=== PATIENT | female | born 1960 | race Caucasian/White ===

== ENCOUNTER 2021-09-04 00:23 | Day surgery (SDC) | payer BC, SELFPAY ==
[2021-08-29 15:07] VITALS: BMI 32.2
--- NOTE | 2021-09-04 10:01 | ECG_ITS ---
Measurements Intervals [place] Rate: 74 P: 62 [place]: 167 QRS: 4 QRSD: 85 T: 45 QT: 404 QTc: 449 Interpretive Statements SINUS RHYTHM LOW QRS VOLTAGE IN PRECORDIAL LEADS EARLY PRECORDIAL R/S TRANSITION BORDERLINE ECG Electronically Signed On 09-04-2021 10:52:05 CDT by Thomas Armendariz D.O.
[2021-09-04 10:33] VITALS: BMI 32.4
[2021-09-04] MEDS: LACTATED RINGERS 1,000 ML 30 ML IV CONT (10:36)
[2021-09-04 10:37] VITALS: BP 125/77; PULSE 78; RESP 20; TEMP 37.2; O2SAT 98
--- NOTE | 2021-09-04 11:14 | WPDANESEPPF ---
Anes - Initial Pre Proc Eval Procedure: Operation Date: 09/04/21 12:00 Proposed Procedures p Excisional Biopsy Of Left Posterior Shoulder Mass - Niesha Bower MD Date/Time: 09/04/21 11:14 Surgeon: Niesha Bower MD Pre Op Diagnosis: Left Posterior Shoulder Mass Patient Data Age: 61 Gender: F Height: 1.6 m Weight: 83 kg Last Vital Signs Temp 37.2 C 09/04/21 10:37 Pulse 78 09/04/21 10:37 Resp 20 09/04/21 10:37 BP 125/77 09/04/21 10:37 Pulse Ox 98 09/04/21 10:37 Allergies Allergy/AdvReac Type Severity Reaction Status Date / Time No Known Allergies Allergy Verified 08/29/21 15:05 Home Medications Medication Instructions Recorded Confirmed Type acetaminophen 650 mg 650 mg PO Q12H PRN 07/22/21 09/04/21 History tablet,extended release amlodipine 10 mg tablet 10 mg PO HS 07/22/21 09/04/21 History atorvastatin 40 mg tablet 40 mg PO HS 07/22/21 09/04/21 History citalopram 20 mg tablet 10 mg PO HS 07/22/21 09/04/21 History Patient hx anesthesia problems: none Family hx anesthesia problems: none Results Review: All pre-operative results and documents have been reviewed as part of the pre-operative evaluation. [facility] Past Medical History Medical History Acute depression Empyema HTN (hypertension) Hyperlipidemia Surgical History Surgical History H/O breast surgery H/O tubal ligation Approximately 1989 History of breast abscess Underwent drainage of the abscess in approximately 1989 Family History Family History Father Colon cancer Mother Diabetes mellitus Lung cancer Sibling Small cell B-cell lymphoma Sister Other Diabetes mellitus Heart disease Social History Social History Smoking packs per day: 1 Smoking cigarettes per day: 20.0 Years smoked: 40 Smoking pack-years: 40.00 Smoking status: Current every day smoker Tobacco type: cigarettes Alcohol intake: never Substance use: current Substance use type: marijuana Other substance usage details: SMOKE Last use: 08/26/21 Living arrangements: with family 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 Informed Consent: The patient's anesthetic plan and its attendant risks and benefits were discussed with the patient/family/POA. Questions were solicited and answers provided to the satisfaction of the patient/family/POA.
--- NOTE | 2021-09-04 12:01 | PM.IMHP ---
H&P: HPI History of Present Illness Date/Time: 09/04/21 12:01 Pt is a 61 y/o F presenting c L posterior shoulder mass. Pt reports mass has been present for the last few mos and seems to be slowly growing in size. Pt reports she occasionally gets some shooting pain down her L arm. Pt reports mass itself is only mildly tender c palpation/pressure. Pt denies any overlying skin changes, infection, drainage. Pt also notes a growing skin lesion, mole on upper left back. Pt reports lesion is larger and seems to be getting darker. Pt also reports it catches on her clothes and sometimes bleeds, itches. Chief Complaint: L post shoulder mass, L upper back skin lz Review of Systems Review of Systems: All systems reviewed & are unremarkable except as noted in HPI and below PMFSH Past Medical History Medical History Acute depression Empyema HTN (hypertension) Hyperlipidemia Surgical History Surgical History H/O breast surgery H/O tubal ligation Approximately 1989 History of breast abscess Underwent drainage of the abscess in approximately 1989 Family History Family History Father Colon cancer Mother Diabetes mellitus Lung cancer Sibling Small cell B-cell lymphoma Sister Other Diabetes mellitus Heart disease Social History Social History Smoking packs per day: 1 Smoking cigarettes per day: 20.0 Years smoked: 40 Smoking pack-years: 40.00 Smoking status: Current every day smoker Tobacco type: cigarettes Alcohol intake: never Substance use: current Substance use type: marijuana Other substance usage details: SMOKE Last use: 08/26/21 Living arrangements: with family 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 Gender identity (if verbalized by the patient): Female Spiritual care concerns: No Meds Home Medications and Allergies Home Medications Medication Instructions Recorded Confirmed Type acetaminophen 650 mg 650 mg PO Q12H PRN 07/22/21 09/04/21 History tablet,extended release amlodipine 10 mg tablet 10 mg PO HS 07/22/21 09/04/21 History atorvastatin 40 mg tablet 40 mg PO HS 07/22/21 09/04/21 History citalopram 20 mg tablet 10 mg PO HS 07/22/21 09/04/21 History Allergies Allergy/AdvReac Type Severity Reaction Status Date / Time No Known Allergies Allergy Verified 08/29/21 15:05 Vital Signs Vital Signs - 24 hr 09/04/21 10:37 Temperature 37.2 C Pulse Rate 78 Respiratory Rate 20 Blood Pressure 125/77 Pulse Oximetry 98 Exam Const: General: cooperative, comfortable and no acute distress Nutritional Appearance: obese Orientation/consciousness: patient oriented x3 Limitations: no limitations Resp: Effort & Inspection: normal respiratory effort Auscultation: clear to auscultation bilaterally Cardio: Rate: regular rate Rhythm: regular rhythm Skin: Other: 8x5 cm L post shoulder mass, likely lipoma, no overlying skin changes 1.5x1 cm L upper back skin lesion, no s/s active infection Assessment and Plan Assessment and plan (1) Mass of soft tissue of shoulder: Code(s): M79.89 - Other specified soft tissue disorders Status: Acute Assessment and Plan: given growth and symptomatology will proceed c exc bx (2) Skin lesion of back: Code(s): L98.9 - Disorder of the skin and subcutaneous tissue, unspecified Status: Acute Assessment and Plan: will proceed c exc bx
[2021-09-04] MEDS: ceFAZolin 2 GM/D5W 50 ML 2 GM/50 ML BAG IVPB (12:04)
--- NOTE | 2021-09-04 12:06 | WPDHPUPDATE1 ---
History and Physical Update Update Date/Time: 09/04/21 12:06 History and Physical has been reviewed, including an updated exam of the patient. There are NO changes in the patient's condition. Risks, benefits, and alternatives have been discussed and questions answered. Patient agrees to proceed with procedure.
[2021-09-04] MEDS: LIDO 1%/EPINEPHRINE/PF 1:200,000 30 ML VIAL XX (12:21)
[2021-09-04] MEDS: BACITRACIN OINTMENT 15 GM TUBE 1 APPLIC TOPICAL (12:37)
[2021-09-04 12:45] VITALS: BP 96/58; PULSE 93; RESP 15; O2SAT 94
--- NOTE | 2021-09-04 12:56 | W.PM.PROC2 ---
Procedure Note - Detailed Date of Procedure 09/04/21 Pre-op Diagnosis Left Posterior Shoulder Mass and Left upper back skin lesion Post-op Diagnosis same Procedure Performed Excisional biopsy left posterior shoulder mass measuring approximately 8 x 5 cm, excisional biopsy left upper back skin lesion measuring approximately 1.5 x 1 cm Surgeon Niesha Bower MD Anesthesia MAC and local Indications The patient is a 61-year-old female presenting to the office with left posterior shoulder mass that has been growing in size over the last 6 months. Patient reports pain shooting down her left upper extremity with certain movements. The patient also with a left upper back skin lesion that she reports has been growing in size and somewhat darkening over the last couple of months. Findings Multi lobular lipoma left posterior shoulder, skin lesion left upper back Description of Procedure The patient was taken to the operating room placed in the supine position. After adequate induction of MAC anesthesia, the patient was prepped and draped in the normal sterile fashion. A time-out was then done to verify the patient's identity, as well as the procedure being performed. I began by placing local anesthesia to both areas. Once these areas were adequately anesthetized, made an incision over this left posterior shoulder mass. This was carried down through the dermis into the subcutaneous tissue. The mass was located entirely within the subcutaneous tissue. It was noted to be a multi lobular lipoma. This was removed in pieces and completely excised. Once completely excised, I went ahead and copiously irrigated the cavity. No other pathology was seen and hemostasis was gained with Bovie cautery. I then closed the subcutaneous tissue with 3-0 Vicryl suture and the skin was subsequently closed 4-0 Monocryl subcuticular suture. Dermabond was then placed on this wound. I then excised the left upper back skin lesion using a 15 blade scalpel. The skin lesion was completely excised at its base taking some of the underlying dermis. Once the lesion was completely excised, it was sent to pathology for further review. I then gained hemostasis with Bovie cautery and sterile dressing was placed on the wound. The patient tolerated these procedures well was alert and awake in the operating room postop. She will be sent to the recovery room in stable condition. Estimated Blood Loss 5 Drains No Packing No Pathology yes Complications No immediate complications Condition stable Disposition PACU
[2021-09-04 13:20] VITALS: BP 132/74; PULSE 73; RESP 16
== END 2021-09-04 13:49 | disposition home or self-care (01) ==
PROVIDERS: Visit Provider Surgery
PROC: (CPT 23071; principal; 2021-09-04 12:00)
DX: D17.22 Benign lipomatous neoplasm of skin and subcutaneous tissue of left arm (principal); D22.5 Melanocytic nevi of trunk; I10 Essential (primary) hypertension; E78.5 Hyperlipidemia, unspecified; F32.9 Major depressive disorder, single episode, unspecified; F17.210 Nicotine dependence, cigarettes, uncomplicated; F12.90 Cannabis use, unspecified, uncomplicated; E66.9 Obesity, unspecified; Z68.32 Body mass index [BMI] 32.0-32.9, adult
CPT/HCPCS: 23071; 11402; 88304; 88305; 93005; A9270; J0690; J2704; J3010; J7120

== ENCOUNTER 2022-01-21 12:25 | Outpatient (CLI) | payer BC, SELFPAY ==
--- NOTE | ~2022-01-21 | CT_ITS ---
EXAMINATION: CT lung screening DATE: 01/21/2022 12:44 INDICATION: Personal history of nicotine dependence. TECHNIQUE: Computed tomography (CT) of the chest was performed without intravenous contrast. The dose -length product was 155.36 mGy-cm. Automated exposure control and iterative reconstruction technique were employed. COMPARISON: None FINDINGS: Heart size is normal. No significant pleural or pericardial effusion. There is atherosclero sis. The upper abdomen is unremarkable. No thoracic lymphadenopathy. There are several 2-3 mm nodules in the upper lobes, likely benign. There is moderate emphysema. No endobronchial lesions. No focal a irspace consolidation. Mild thoracic spondylosis. No acute osseous abnormality. IMPRESSION: 1. Lung-RADS category 2: Benign appearance or behavior. Continue annual screening with noncontrast lo w-dose chest CT in 12 months. Reviewed, dictated and finalized at location B. COORDINATOR IMPRESSION: 1. Lung-RADS category 2: Benign appearance or behavior. Continue annual screeni ng with noncontrast low-dose chest CT in 12 months.
--- NOTE | 2022-01-21 16:09 | WPDPFTINT ---
PFT Procedure Performed PFT Procedure Performed Spirometry with Pre/Post Bronchodilator Plethysmography (Lung Vol) Diffusing Cap (DLCO) Flow Vol Loop PFT Interpretation Lung volumes were measured with the body plethysmography method. Lung volumes are unremarkable. Spirometry showed diminished expiratory flow rates and a diminished FEV1 to FVC ratio 65%, consistent with obstructive airway disease. Following administration of a bronchodilator there was no significant increase in expiratory flow rates. Lung diffusion capacity is mildly reduced at 69% predicted. The flow volume loop is consistent with obstructive airway disease. Impression: Mild obstructive airway disease with no response to bronchodilators on this testing. Mildly reduced lung diffusion capacity.
--- NOTE | 2022-01-21 16:11 | WPDSIXMINUTE ---
Six Minute Walk Procedure Procedure Performed Pulmonary Stress Test (6 min walk) Six Minute Walk This 6 minute walk test was carried out with the patient breathing ambient air. The pre walk oxyhemoglobin saturation was 97% predicted. The patient walked over 396 meters with no stops recorded. During the walk the oxyhemoglobin saturation remained over 95%. The perceived dyspnea at baseline was 0 on the [place] scale and increase to 3 at the end of the walk test. Impression: No evidence of oxyhemoglobin desaturation on this testing.
== END 2022-01-21 12:26 | disposition home or self-care (01) ==
PROVIDERS: Visit Provider Nurse Practitioner Family
DX: R06.02 Shortness of breath (principal); Z87.891 Personal history of nicotine dependence
CPT/HCPCS: 71271; 94060; 94618; 94726; 94729

== ENCOUNTER 2022-02-11 08:01 | Outpatient (CLI) | payer BC, SELFPAY ==
--- NOTE | 2022-02-17 13:40 | WPDHOMESLEEP ---
Sleep Study - Home Unattended Date of Study: 02/11/22 Ordering Provider: Rashaad Javed APRN Interpreting Provider: Letitia Colvin, DO Home Sleep Study Type: Apnea Link Air Height: 1.6 m Weight: 81.647 kg Body Mass Index: 31.8 Neck Circumference (inches): 16.5 [place]: 6 Reason for Sleep Study Loud snoring, Daytime hypersomnia Sleep History The patient is a 62-year-old female with hypertension, hyperlipidemia, depression, and frequent nighttime urination that had a home sleep test ordered by the pulmonary group for evaluation of CARLOS. the patient is a homemaker. The patient denies awakening from sleep short of breath. She denies awakening at night with heartburn, belching or cough. She constantly snores loud enough that others complain. She constantly has trouble sleeping when she has a cold. She denies waking up gasping for air throughout the night. She denies having breathing problems at night observed by herself or others. She constantly sweats excessively at night. She denies having heart palpitations or irregular heartbeats during the night. She frequently falls asleep during the day but never while driving. She denies sleep paralysis, cataplexy and hypnagogic / hypnopompic hallucinations. She rarely has nightmares. She occasionally remembers her dreams. She denies having thoughts racing through her mind. She occasionally feels sad or depressed. She constantly has anxiety. She occasionally has muscular tension. She occasionally notices parts of her body jerk. She denies kicking during the night. She frequently has crawling and aching feelings in her legs as well as leg pain during the night. She occasionally grades her teeth during sleep but never awakens with morning jaw pain. She frequently is bothered by pain during the day and occasionally awakened by pain during the night. She frequently wakes up feeling stiff in the morning. She occasionally wakes up with sore achy muscles. She frequently wakes up with pain in the neck, spine or other joints. She goes to bed at 1:00 a.m. on weekdays and between 2 and 3:00 a.m. on the weekends. That amount of time it takes for her to fall asleep varies. She wakes up 2-4 times throughout the night. When she awakens, she will turn on the television and smoke. She can fall back asleep within 15 minutes. She wakes up at 6:00 a.m. on weekdays and between 10 and 12:00 a.m. on the weekends. He typically gets 4-5 hours of sleep per night. She will not stay in bed after waking up in the morning. She is currently living with her and 2 children. She will consume caffeinated beverages within 2 hours of bedtime. She does not engage in physical exercise before bedtime. She will watch television before falling asleep. She does not take naps in the afternoon or the evening. She drinks 2 pots of coffee per day. She currently smokes 1 pack of cigarettes per day. She denies alcohol use. She does use CBD edibles and smokes marijuana. COUNTS INCLUDE 234 BEDS AT THE [facility] Past Medical History Medical History Acute depression Empyema HTN (hypertension) Hyperlipidemia Surgical History Surgical History H/O breast surgery H/O excision of mass 09/04/21 Left Posterior Shoulder Mass and Left upper back skin lesion H/O tubal ligation Approximately 1989 History of breast abscess Underwent drainage of the abscess in approximately 1989 Family History Family History Father Colon cancer Mother Diabetes mellitus Lung cancer Sibling Small cell B-cell lymphoma Sister Other Diabetes mellitus Heart disease Social History Social History Smoking packs per day: 1 Smoking cigarettes per day: 20.0 Years smoked: 40 Smoking pack-years: 40.00 [place]
[2022-02-17 14:09] VITALS: BMI 31.8
== END 2022-02-12 10:23 | disposition home or self-care (01) ==
LOC: ANHCSM 08:02
PROVIDERS: Visit Provider Nurse Practitioner Family
DX: G47.10 Hypersomnia, unspecified (principal)
CPT/HCPCS: 95806